=== PATIENT | male | born 1950 | race African-American/Black ===

== ENCOUNTER → 2023-12-20 | Outpatient (REF) | payer OTHER ==
[~2023-12-20] MED LIST: ATORVASTATIN CA20 MG PO; BACLOFEN10 MG PO; FLOMAX0.4 MG PO; METOPROLOL TARTRATE INJ 1 MG/ML VIAL ONE; NIFEDIPINE ER30 M1 PO; NITROGLYCERIN 0.4 MG SUBL ONE; SODIUM CHLORIDE 0.9% 100 ML ONE; VITAMIN D3125 MCG PO
[2023-12-20 10:31] LABS: CREATININE, SERUM 1.52 mg/dL (0.72-1.25)
== END ==
LOC: CT 09:19
PROVIDERS: ATTEND Internal Medicine Cardiovascular Disease
DX: R07.9 Chest pain, unspecified (principal)
CPT/HCPCS: 36415; 75574; 75580; 82565; 84520; J7050